=== PATIENT | male | born 1995 | race African-American/Black ===

== ENCOUNTER 2021-04-11 23:36 | Emergency (ER) | payer OTHER ==
[~2021-04-11] VITALS: Ht 185.4 cm; Wt 98.0 kg
[2021-04-11 23:38] VITALS: BP 129/78
[2021-04-11] MEDS ORDERED: HYDROCODONE/ACETAMINOPHEN 5/325MG TABLET PO STA (23:58)
[2021-04-12] MEDS ORDERED: BACITRACIN ZINC OINT UDPKT TOP ONE (00:15)
[2021-04-12] MEDS ORDERED: LIDOCAINE HCL/PF 1% 10 MG/ML 5ML VIAL INFIL SCH (00:30)
[2021-04-12] MEDS ORDERED: IBUP-2029 PO (02:51)
[2021-04-12] MEDS ORDERED: HYDR-4001 PO (02:51)
== END 2021-04-12 03:07 | disposition home or self-care (01) ==
LOC: ER 23:36
DX: S52.514A Nondisplaced fracture of right radial styloid process, initial encounter for closed fracture (principal); S52.614A Nondisplaced fracture of right ulna styloid process, initial encounter for closed fracture; S80.212A Abrasion, left knee, initial encounter; S80.211A Abrasion, right knee, initial encounter; V29.88XA Motorcycle rider (driver) (passenger) injured in other specified transport accidents, initial encounter; Y93.55 Activity, bike riding; Y92.89 Other specified places as the place of occurrence of the external cause; Y99.8 Other external cause status
CPT/HCPCS: 29125; 73090; 73110; 99284; J3490

== ENCOUNTER 2022-06-01 12:47 | Emergency (ER) | payer OTHER ==
[~2022-06-01] VITALS: Ht 172.7 cm; Wt 75.0 kg
[~2022-06-01 12:47] MED LIST: HYDR-4001 PO; IBUP-2029 PO
[2022-06-01] MEDS ORDERED: KETOROLAC 60MG/2ML VIAL IM STA (13:47)
[2022-06-01 14:50] VITALS: BP 121/80
[2022-06-01 15:04] LABS: BASOPHILS % 0.6 % (0.0-2.0); EOSINOPHILS % 0.5 % (0.0-5.0); HEMATOCRIT. 43.8 % (42.0-52.0); HEMOGLOBIN. 14.8 g/dL (14.0-18.0); LYMPHOCYTES % 37.6 % (20.0-50.0); MEAN CORPUSCULAR HEMOGLOBIN 33.5 pg (28.0-32.0); MEAN CORPUSCULAR VOLUME 99.3 fL (80.0-94.0); MEAN PLATELET VOLUME 10.3 fl (7.4-10.4); MONOCYTES % 5.7 % (2.0-8.0); NEUTROPHILS % 55.6 % (40.0-76.0); PLATELET 150 x1000/uL (130-400); RED BLOOD CELL COUNT 4.41 mill/uL (4.7-6.1); RED CELL DISTRIBUTION WIDTH 12.2 % (11.6-14.6)
[2022-06-01 15:19] LABS: CHLORIDE 105 mEq/L (98-107)
[2022-06-01] MEDS ORDERED: IBUP-2028 MT (15:31)
== END 2022-06-01 15:52 | disposition home or self-care (01) ==
LOC: ER 12:47
DX: R10.31 Right lower quadrant pain (principal)
CPT/HCPCS: 36415; 80053; 85025; 96372; 99283; J1885

== ENCOUNTER 2023-07-20 05:21 | Emergency (ER) | payer OTHER ==
[~2023-07-20] VITALS: Ht 182.9 cm; Wt 84.0 kg
[~2023-07-20 05:21] MED LIST changes: +IBUP-2028 MT
[2023-07-20 06:07] VITALS: O2SAT 100
[2023-07-20] MEDS ORDERED: KETOROLAC 60MG/2ML VIAL IM ONE (06:15)
[2023-07-20 06:36] VITALS: BP 126/82
[2023-07-20] MEDS ORDERED: IBUP-2028 PO (07:15)
[2023-07-20 08:05] VITALS: PULSE 72; RESP 12; TEMP 97.5
== END 2023-07-20 08:22 | disposition home or self-care (01) ==
LOC: ER 05:21
DX: M25.561 Pain in right knee (principal)
CPT/HCPCS: 73562; 96372; 99283; J1885; Z7610 ×2